=== PATIENT | female | born 1965 | race Caucasian/White ===

== ENCOUNTER → 2016-10-06 | Outpatient (CLI) | payer OTHER ==
[~2016-10-06] MED LIST: ACETAMINOPHEN PO; ALPRAZOLAM PO; ARMOUR THYROID90 MG PO; FLEXERIL PO; GABAPENTIN800 MG PO; KEPPRA500 M2 PO; MINOCIN PO; OXYCODONE HCL5 MG PO; OXYCONTIN PO; OXYCONTIN80 MG PO; SEROQUEL50 MG PO; SYNTHROID PO; TRAZODONE PO; XANAX1 MG PO
--- NOTE | ~2016-10-06 | EE ---
Unit #: [id number] #: [id number] Patient: KOFFI CARDONA [id number] [address] [address] [id number] O MR#: [id number] NAME: KOFFI CARDONA : 1965 SEX: F STUDY DATE/TIME: 10/06/2016 UNIT: CEEG ROOM: STUDY DESCRIPTION: Attending Physician: Sharan Jim II., M.D. Referring Physician: Sharan Jim II., M.D. Primary Care Physician: No Primary Care Physician NEURODIAGNOSTICS REPORT EXAM EEG. REASON FOR STUDY Seizures, history of MS, memory loss. TECH Daniella. TECHNICAL INFORMATION This is a routine EEG performed using the Standard [employer] 10/20 System electrode placement. Photic stimulation was performed. Hyperventilation was also performed. REPORT Throughout the entire study, the best background rhythm seen is approximately 11-12 Hz. This rhythm was seen in both posterior head regions symmetrically and does attenuate to eye opening and closure. Photic stimulation was performed which did not elicit any epileptiform abnormalities; however, a good photic driving response was seen. Hyperventilation was also performed which failed to reproduce any abnormal buildup. Throughout the entire study, there were no electrographic seizures nor were there any epileptiform abnormalities seen. No sleep was recorded during the EEG. INTERPRETATION This is a normal awake EEG. A normal EEG does not rule out the possibility of a seizure disorder. Clinical correlation is advised. Dictated by... Sharan Jim II., M.D. GWS/nisreen TD: 10/11/2016 15:06 JOB #: [id number] Unit #: [id number] #: [id number] Patient: KOFFI CARDONA NEURODIAGNOSTICS REPORT Page 1 of 1 X NEURODIAGNOSTICS REPORT
--- NOTE | ~2016-10-06 | MR17 ---
[facility] A Service of [facility] RADIOLOGY TEXT RESULTS PATIENT: KOFFI CARDONA LOCATION: CEEG : 63 UNIT #: [id number] AGE: [address]: Sharan Jim II, MD SEX: F ORDER DR: [id number] [facility] [address] [place], [place] [address] [id number] O MR#: [id number] Acc #: [id number] NAME: KOFFI CARDONA : 1965 SEX: F STUDY DATE/TIME: 10/06/2016 14:57 UNIT: CEEG ROOM: STUDY DESCRIPTION: MR Brain WWo Contrast Attending Physician: Sharan Jim II., M.D. Referring Physician: Sharan Jim II., M.D. Ordering Physician: Sharan Jim II., M.D. Primary Care Physician: Primary Care Physician No MRI CENTER REPORT This report is preliminary unless electronic signature is present. EXAM MRI of the brain with and without HISTORY Multiple sclerosis since 1998. Memory loss for years is getting worse with visual changes and dizziness. Head and legs twitch. Feels like she is on a boat. FINDINGS MRI of the brain was performed prior to and following intravenous administration of 10 mL of MultiHance. Comparison study is from 12/03/2015. There is no evidence for abnormally restricted diffusion. Midline structures are unremarkable. The ventricles are normal in size and configuration for age group and the shay-white junction is age appropriate. The major intracranial flow voids are maintained. The mastoid air cells are clear. Small mucous retention cyst or polyp right maxillary sinus region. No sinus air fluid level. The patient has had cataract surgery on the left. There is no MRI evidence for intracranial hemorrhage. Following contrast administration, there is no pathologic intracranial enhancement. No intracranial mass lesion or mass effect. No imaging evidence for demyelinating disease of the brain. IMPRESSION Essentially normal MRI of the brain with and without contrast for age group. Dictated by... Doris Tamez M.D. THIS IS AN ELECTRONICALLY VERIFIED REPORT [facility] A Service of [facility] RADIOLOGY TEXT RESULTS PATIENT: KOFFI CARDONA LOCATION: CEEG : 63 UNIT #: [id number] AGE: [address]: Sharan Jim II, MD SEX: F ORDER DR: Doirs Tamez M.D. at 10/07/2016 5:03 PM Nita TD: 10/07/2016 08:18 JOB #: [id number] MRI CENTER REPORT Page 1 of 1 COPY
== END | disposition home or self-care (01) ==
LOC: CEEG 12:22
DX: R41.3 Other amnesia (principal); Z86.69 Personal history of other diseases of the nervous system and sense organs
CPT/HCPCS: 70553; 95816; A9577